=== PATIENT | male | born 1955 | race Caucasian/White ===

== ENCOUNTER 2019-05-08 12:48 | Observation (INO) | payer SELFPAY ==
[2019-05-08] MEDS ORDERED: MORPHINE 4 MG/ML SYR ONE (14:23)
[2019-05-08] MEDS ORDERED: NA CHLORIDE 0.9% 1,000 ML ONE (14:23)
[2019-05-08] MEDS ORDERED: ONDANSETRON 4 MG/2 ML VIAL ONE ×2 (14:23→17:46)
[2019-05-08] MEDS ORDERED: ASPIRIN EC 81 MG TAB PO ONE (14:24)
[2019-05-08 14:30] LABS: Absolute Lymphocytes (CBC) 1.1 K/uL (0.7-4.9); Basophils % 0.4 % (0-1.3); Hematocrit 44.3 % (39.6-49.0); RBC Red Blood Cell Count 5.07 M/uL (4.33-5.43)
[2019-05-08 14:34] LABS: Protime INR 1.62
--- NOTE | 2019-05-08 14:48 | RAD REPORT ---
EXAM DESCRIPTION: Yannick Single View05/08/2019 2:34 pm CLINICAL HISTORY: Chest pain COMPARISON: 2009 FINDINGS: The lungs appear clear of acute infiltrate. The heart is normal size IMPRESSION: No acute abnormalities displayed
[2019-05-08 14:52] LABS: ALT/SGPT 29 U/L (12-78); AST/SGOT 21 U/L (15-37); Albumin 3.3 g/dL (3.4-5.0); Alkaline Phosphatase 81 U/L (45-117); BUN Blood Urea Nitrogen 11 mg/dL (7-18); Bicarbonate 28 mmol/L (21-32); Bilirubin Direct 0.1 mg/dL (0-0.2); Bilirubin Total 0.4 mg/dL (0.2-1.0); Glucose Level 95 mg/dL (74-106); NT PRO-BNP 40 pg/mL (<125); Potassium 3.9 mmol/L (3.5-5.1); Protein, Total 6.6 g/dL (6.4-8.2); Sodium Level 140 mmol/L (136-145); Troponin (Emerg Dept Use Only) < 0.02 ng/mL (0.0-0.045)
--- NOTE | 2019-05-08 15:26 | EDPHYS ---
Physician Documentation [facility] Name: Jean Marie Xie Age: 63 yrs Sex: Male : 1955 Arrival Date: 05/08/2019 Time: 12:52 Bed 8 Private MD: KINGS Physician Qamar Hardin HPI: 05/08 14:15 This 63 yrs old Male presents to ER via Wheelchair with complaints of Blood bianka clot. 14:15 The patient presents with decreased range of motion, pain, swelling, tenderness. The bianka complaints affect the lateral aspect of right knee, lateral aspect of right calf, posterior aspect of right knee, right calf, right Achilles, medial aspect of right knee, medial aspect of right calf, right ankle, right knee, right morrison and anterior aspect of right ankle. Context: resulted from an unknown cause, the patient can partially bear weight, the patient is able to ambulate. Onset: The symptoms/episode began/occurred 4 day(s) ago. Modifying factors: The symptoms are alleviated by elevating leg, remaining still, the symptoms are aggravated by weight bearing, bending knee. Treatment prior to arrival includes: prescription medications, coumadin. The patient has not experienced similar symptoms in the past. Historical: - Allergies: 13:05 ACETAMINOPHEN; aj1 - Home Meds: 13:05 Warfarin Oral [Active]; Aspirin Oral [Active]; aj1 - PMHx: 13:05 DVT; aj1 - Immunization history:: Flu vaccine is not up to date. - Social history:: Smoking status: Patient/guardian denies using tobacco. - Ebola Screening: : Patient denies travel to an Ebola-affected area in the 21 days before illness onset. - Family history:: not pertinent. ROS: 14:15 Constitutional: Negative for fever, chills, and weight loss, Eyes: Negative for injury, bianka pain, redness, and discharge, ENT: Negative for injury, pain, and discharge, Neck: Negative for injury, pain, and swelling, Abdomen/GI: Negative for abdominal pain, nausea, vomiting, diarrhea, and constipation, Back: Negative for injury and pain, : Negative for injury, bleeding, discharge, and swelling, Skin: Negative for injury, rash, and discoloration, Neuro: Negative for headache, weakness, numbness, tingling, and seizure, Psych: Negative for depression, anxiety, suicide ideation, homicidal ideation, and hallucinations, Allergy/Immunology: Negative for hives, rash, and allergies, Endocrine: Negative for neck swelling, polydipsia, polyuria, polyphagia, and marked weight changes, Hematologic/Lymphatic: Negative for swollen nodes, abnormal bleeding, and unusual bruising. 14:15 Cardiovascular: Positive for chest pain, of the chest. 14:15 Respiratory: Positive for shortness of breath. 14:15 : 14:15 MS/extremity: Positive for decreased range of motion, pain, swelling, tenderness, of the right leg. Exam: 14:15 Constitutional: This is a well developed, well nourished patient who is awake, alert, bianka and in no acute distress. Head/Face: Normocephalic, atraumatic. Eyes: Pupils equal round and reactive to light, extra-ocular motions intact. Lids and lashes normal. Conjunctiva and sclera are non-icteric and not injected. Cornea within normal limits. Periorbital areas with no swelling, redness, or edema. ENT: Nares patent. No nasal discharge, no septal abnormalities noted. Tympanic membranes are normal and external auditory canals are clear. Oropharynx with no redness, swelling, or masses, exudates, or evidence of obstruction, uvula midline. Mucous membranes moist. Neck: Trachea midline, no thyromegaly or masses palpated, and no cervical lymphadenopathy. Supple, full range of motion without nuchal rigidity, or vertebral point tenderness. No Meningismus. Chest/axilla: Normal chest wall appearance and motion. Nontender with no deformity. No lesions are appreciated. Respiratory: Lungs have equal breath sounds bilaterally, clear to auscultation and percussion. No rales, rhonchi or wheezes noted. No increased work of breathing, no retractions or nasal flaring. Abdomen/GI: Soft, non-tender, with normal bowel sounds. No distension or tympany. No guarding or rebound. No evidence of tenderness throughout. Back: No spinal tenderness. No costovertebral tenderness. Full range of motion. Skin: Warm, dry with normal turgor. Normal color with no rashes, no lesions, and no evidence of cellulitis. Neuro: Awake and alert, GCS 15, oriented to person, place, time, and situation. Cranial nerves II-XII grossly intact. Motor strength 5/5 in all extremities. Sensory grossly intact. Cerebellar exam normal. Normal gait. Psych: Awake, alert, with orientation to person, place and time. Behavior, mood, and affect are within normal limits. 14:15 Cardiovascular: Rate: tachycardic, Rhythm: regular, Pulses: Pulses are 4+ in bilateral radial, brachial, femoral, popliteal, posterior tibial and and dorsalis pedis arteries.. Heart sounds: normal, normal S1and S2, no S3 or S4, no murmur, no rub, no gallop, Edema: is not appreciated, JVD: is not appreciated. Vital Signs: 13:05 BP 123 / 87; Pulse 103; Resp 18; Temp 98.9; Pulse Ox 98% on R/A; Weight 86.18 kg (R); aj1 Height 5 ft. 10 in. (177.80 cm) (R); Pain 8/10; 14:15 BP 145 / 94; Pulse 85; Resp 15 S; Pulse Ox 95% on R/A; jl7 16:39 BP 150 / 95; Pulse 90; Resp 17; Pulse Ox 97% on R/A; em 19:40 BP 125 / 83; Pulse 81; Resp 17 S; Pulse Ox 95% on R/A; jd3 13:05 Body Mass Index 27.26 (86.18 kg, 177.80 cm) aj1 MDM: 13:44 Patient medically screened. [facility] 14:18 Data reviewed: vital signs, nurses notes, lab test result(s), EKG, radiologic studies, [facility] CT scan, doppler, plain films. 05/08 13:49 Order name: Basic Metabolic Panel; Complete Time: 15:16 05/08 13:49 Order name: CBC with Diff; Complete Time: 15:16 05/08 13:49 Order name: LFT's; Complete Time: 15:16 05/08 13:49 Order name: Magnesium; Complete Time: 15:16 05/08 13:49 Order name: NT PRO-BNP; Complete Time: 15:16 05/08 13:49 Order name: PT-INR; Complete Time: 15:16 05/08 13:49 Order name: Troponin (emerg Dept Use Only); Complete Time: 15:16 05/08 13:49 Order name: XRAY Chest (1 view); Complete Time: 15:16 05/08 14:15 Order name: US Extremity Venous W Compression Mahamed; Complete Time: 16:27 [facility] 05/08 14:15 Order name: CT Chest For PE Angio [facility] 05/08 16:07 Order name: CT; Complete Time: 16:27 EDIN 05/08 17:15 Order name: Knee Right Wo Cont EDIN 05/08 17:17 Order name: Knee Right 3 View XRAY [facility] 05/08 13:49 Order name: EKG; Complete Time: 13:50 hb 05/08 13:49 Order name: Cardiac monitoring; Complete Time: 14:28 hb 05/08 13:49 Order name: EKG - Nurse/Tech; Complete Time: 14:28 hb 05/08 13:49 Order name: IV Saline Lock; Complete Time: 14:28 hb 05/08 13:49 Order name: Labs collected and sent; Complete Time: 14:28 hb 05/08 15:31 Order name: CONS Pharmacy Consult [facility] 05/08 13:49 Order name: O2 Per Protocol; Complete Time: 14:28 hb 05/08 13:49 Order name: O2 Sat Monitoring; Complete Time: 14:28 hb Administered Medications: 14:20 Drug: NS 0.9% 1000 ml Route: IV; Rate: 1 bolus; Site: left wrist; jl7 15:30 Follow up: IV Status: Completed infusion; IV Intake: 1000ml jl7 14:22 Drug: Zofran 4 mg Route: IVP; Site: left wrist; jl7 16:35 Follow up: Response: No adverse reaction jl7 14:25 Drug: morphine 4 mg Route: IVP; Site: left wrist; jl7 16:35 Follow up: Response: No adverse reaction; Pain is decreased jl7 14:27 Drug: Aspirin 162 mg Route: PO; jl7 16:34 Follow up: Response: No adverse reaction jl7 16:29 Not Given (Duplicate Order): Heparin (DVT/PE- Bolus per protocol) - HEParin 80 units/kg bianka IVP once; Max 8,000 units 16:29 Not Given (Duplicate Order): Heparin (DVT/PE Drip) 18 units/kg/hr - (HEParin 22440 bianka units, D5W 500 ml) IV at per protocol Per protocol; Max initial rate 1800 units/hr 18:00 Drug: Zofran 4 mg Route: IVP; Site: left wrist; jl7 19:07 Follow up: Response: No adverse reaction jl7 18:07 Not Given (Duplicate Order): Dilaudid 1 mg IVP once; RASS on ADMIN: Combtv4, Very bianka Agttd3, Agttd2, Rstlss1, AlertClm0, Drwsy-1, Lt Sdtn-2, Mod Sdtn-3, Dp Sdtn-4, UnArsble-5 18:15 Drug: Dilaudid 0.5 mg Route: IVP; Site: left wrist; jl7 18:30 Follow up: Response: No adverse reaction; Pain is decreased jl7 18:20 Drug: Dilaudid 0.5 mg Route: IVP; Site: left wrist; jl7 18:30 Follow up: Response: No adverse reaction; Pain is decreased jl7 19:06 Drug: Pepcid 20 mg Route: IVP; Site: left wrist; jl7 19:07 Follow up: Response: No adverse reaction jl7 Disposition: 05/08/19 17:19 Hospitalization ordered by Harmony Lomeli for Inpatient Admission. Preliminary diagnosis are Edema, unspecified, Effusion, right knee, Synovial cyst of popliteal space [Ervin], right knee, Coagulation defect, unspecified - on coumadin. - Bed requested for Telemetry/MedSurg (Inpatient). - Status is Inpatient Admission. jd3 - Condition is Fair. - Problem is new. - Symptoms have improved. UTI on Admission? No Signatures: Dispatcher [employer] EDAlina Tate RN RN aj1 Janette Levi RN Qamar Will MD MD cha Baxter, Heather, RN RN hb Leal, Jahala, RN RN jl7 Flako Jiménez RN RN jd3 Corrections: (The following items were deleted from the chart) 16:05 15:25 Hospitalization Ordered by Harmony Lomeli MD for Inpatient Admission. Preliminary gilberto diagnosis is Acute embolism and thrombosis of unspecified deep veins of right distal lower extremity; Chest pain, unspecified; Dyspnea. Bed requested for Telemetry/MedSurg (Inpatient). Status is Inpatient Admission. Condition is Fair. Problem is new. Symptoms have improved. UTI on Admission? No. bianka 16:29 16:05 05/08/2019 15:25 Hospitalization Ordered by Harmony Lomeli MD for Inpatient bianka Admission. Preliminary diagnosis is Acute embolism and thrombosis of unspecified deep veins of right distal lower extremity; Chest pain, unspecified; Dyspnea. Bed requested for Telemetry/MedSurg (Inpatient). Status is Inpatient Admission. Condition is Fair. Problem is new. Symptoms have improved. UTI on Admission? No. dw 17:07 16:33 05/08/2019 16:[address] [facility]. Diagnosis is bianka Edema, unspecified; Pain in right lower leg - 3.3 cm popliteal fossa. Reason for transfer: Higher level of care. Accepting physician is to [facility], vascular surgeon. Condition is Fair. Problem is new. Symptoms have improved. bianka 17:19 17:19 Hospitalization Ordered by Harmony Lomeli MD for Inpatient Admission. Preliminary dw diagnosis is Edema, unspecified; Effusion, right knee; Synovial cyst of popliteal space [Ervin], right knee; Coagulation defect, unspecified - on coumadin. Bed requested for Telemetry/MedSurg (Inpatient). Status is Inpatient Admission. Condition is Fair. Problem is new. Symptoms have improved. UTI on Admission? No. bianka 20:49 17:19 05/08/2019 17:19 Hospitalization Ordered by Harmony Lomeli MD for Inpatient jd3 Admission. Preliminary diagnosis is Edema, unspecified; Effusion, right knee; Synovial cyst of popliteal space [Ervin], right knee; Coagulation defect, unspecified - on coumadin. Bed requested for Telemetry/MedSurg (Inpatient). Status is Inpatient Admission. Condition is Fair. Problem is new. Symptoms have improved. UTI on Admission? No. dw
--- NOTE | 2019-05-08 15:26 | ER ---
Nurse's Notes [facility] Name: Jean Marie Xie Age: 63 yrs Sex: Male : 1955 Arrival Date: 05/08/2019 Time: 12:52 Bed 8 Private MD: Diagnosis: Edema, unspecified;Effusion, right knee;Synovial cyst of popliteal space [Ervin], right knee;Coagulation defect, unspecified-on coumadin Presentation: 05/08 13:02 Presenting complaint: Patient states: He had an ultrasound done last Saturday and they aj1 diagnosed him with a blood clot, his doctor started him on warfarin but said that if it was getting worse to come to the emergency room. States that he went back to work today and while he was working the pain got much worse and his swelling got worse. Transition of care: patient was not received from another setting of care. Onset of symptoms was 2019. Risk Assessment: Do you want to hurt yourself or someone else? Patient reports no desire to harm self or others. Initial Sepsis Screen: Does the patient meet any 2 criteria? HR > 90 bpm. No. Patient's initial sepsis screen is negative. Does the patient have a suspected source of infection? No. Patient's initial sepsis screen is negative. Care prior to arrival: None. 13:02 Method Of Arrival: Wheelchair aj1 13:02 Acuity: YULISSA 3 aj1 Triage Assessment: 13:05 General: Appears in no apparent distress. uncomfortable, Behavior is calm, cooperative, aj1 appropriate for age. Pain: Complains of pain in right leg Pain currently is 8 out of 10 on a pain scale. Neuro: Level of Consciousness is awake, alert, obeys commands. Cardiovascular: Patient's skin is warm and dry. Respiratory: Airway is patent Respiratory effort is even, unlabored, Respiratory pattern is regular, symmetrical. Historical: - Allergies: 13:05 ACETAMINOPHEN; aj1 - Home Meds: 13:05 Warfarin Oral [Active]; Aspirin Oral [Active]; aj1 - PMHx: 13:05 DVT; aj1 - Immunization history:: Flu vaccine is not up to date. - Social history:: Smoking status: Patient/guardian denies using tobacco. - Ebola Screening: : Patient denies travel to an Ebola-affected area in the 21 days before illness onset. - Family history:: not pertinent. Screenin:15 Abuse screen: Denies threats or abuse. Denies injuries from another. Nutritional jl7 screening: No deficits noted. Tuberculosis screening: No symptoms or risk factors identified. Fall Risk IV access (20 points). Assessment: 13:45 General: Appears in no apparent distress. uncomfortable, Behavior is calm, cooperative, jl7 appropriate for age. Pain: Complains of pain in right ankle, posterior aspect of right knee and right calf Pain currently is 6 out of 10 on a pain scale. at worst was 8 out of 10 on a pain scale. Quality of pain is described as aching, Pain began 5 days ago Is continuous. Neuro: Level of Consciousness is awake, alert, obeys commands, Oriented to person, place, time, situation. Cardiovascular: Patient's skin is warm and dry. Pulses are palpable in right dorsalis pedis artery and left dorsalis pedis artery are 1+ in right dorsalis pedis artery are 3+ in left dorsalis pedis artery. Respiratory: Reports "I got short of breath earlier but I'm not right now." Airway is patent Respiratory effort is even, unlabored, Respiratory pattern is regular, symmetrical. Derm: Skin is pink, warm \\T\\ dry. Musculoskeletal: Swelling present in right lower extrmitiy. 17:50 Reassessment: was in MRI requesting pain medication for the procedure, provider em notified, given verbal orders for 1 mg Dilaudid x 1 IVP and 4 mg Zofran x 1 IVP, pt stated, "I feel like my blood pressure is low" became diaphoretic and clammy, primary nurse and provider notified, pt assisted back into MRI bed, Dr. Hardin at bedside, will hold medication until procedure is complete. 19:53 General: Appears in no apparent distress. comfortable, Behavior is calm, cooperative, jd3 appropriate for age. Pain: Complains of pain in right leg Quality of pain is described as aching. Neuro: Level of Consciousness is awake, alert, obeys commands, Oriented to person, place, time, situation. Cardiovascular: Denies chest pain, Capillary refill < 3 seconds Patient's skin is warm and dry. Respiratory: Airway is patent Respiratory effort is even, unlabored, Respiratory pattern is regular, symmetrical, Denies cough, shortness of breath. GI: No signs and/or symptoms were reported involving the gastrointestinal system. : No signs and/or symptoms were reported regarding the genitourinary system. EENT: No signs and/or symptoms were reported regarding the EENT system. Derm: Skin is intact, Skin is dry, Skin is normal, Skin temperature is warm. Musculoskeletal: Circulation, motion, and sensation intact. Swelling present in right lower extremity. 20:01 Reassessment: Patient appears in no apparent distress at this time. Patient and/or jd3 family updated on plan of care and expected duration. Pain level reassessed. Patient is alert, oriented x 3, equal unlabored respirations, skin warm/dry/pink. report given to Kaykay PORRAS. 20:48 Reassessment: Patient appears in no apparent distress at this time. Patient and/or jd3 family updated on plan of care and expected duration. Pain level reassessed. Patient is alert, oriented x 3, equal unlabored respirations, skin warm/dry/pink. Vital Signs: 13:05 BP 123 / 87; Pulse 103; Resp 18; Temp 98.9; Pulse Ox 98% on R/A; Weight 86.18 kg (R); aj1 Height 5 ft. 10 in. (177.80 cm) (R); Pain 8/10; 14:15 BP 145 / 94; Pulse 85; Resp 15 S; Pulse Ox 95% on R/A; jl7 16:39 BP 150 / 95; Pulse 90; Resp 17; Pulse Ox 97% on R/A; em 19:40 BP 125 / 83; Pulse 81; Resp 17 S; Pulse Ox 95% on R/A; jd3 13:05 Body Mass Index 27.26 (86.18 kg, 177.80 cm) aj1 ED Course: 12:52 Patient arrived in ED. mr 13:04 Triage completed. aj1 13:05 Arm band placed on Patient placed in waiting room, Patient notified of wait time. aj1 13:36 Lalita Kwong RN is Primary Nurse. jl7 13:44 Qamar Hardin MD is Attending Physician. bianka 14:00 Initial lab(s) drawn, by me, sent to lab. Inserted saline lock: 20 gauge in left wrist, jl7 using aseptic technique. Blood collected. 14:15 Patient has correct armband on for positive identification. Placed in gown. Bed in low jl7 position. Call light in reach. Side rails up X2. quality assurance monitor body on. Pulse ox on. NIBP on. Warm blanket given. 14:34 EKG done, by waste minimization technician. reviewed by Qamar Hardin MD. at1 14:38 XRAY Chest (1 view) In Process Unspecified. EDMS 15:01 US Extremity Venous W Compression Mahamed In Process Unspecified. EDMS 15:24 Harmony Lomeli MD is Hospitalizing Provider. bianka 16:15 Admitting physician to see patient. jl7 17:18 Harmony Lomeli MD is Hospitalizing Provider. bianka 19:41 No provider procedures requiring assistance completed. Patient admitted, IV remains in jd3 place. Administered Medications: 14:20 Drug: NS 0.9% 1000 ml Route: IV; Rate: 1 bolus; Site: left wrist; jl7 15:30 Follow up: IV Status: Completed infusion; IV Intake: 1000ml jl7 14:22 Drug: Zofran 4 mg Route: IVP; Site: left wrist; jl7 16:35 Follow up: Response: No adverse reaction jl7 14:25 Drug: morphine 4 mg Route: IVP; Site: left wrist; jl7 16:35 Follow up: Response: No adverse reaction; Pain is decreased jl7 14:27 Drug: Aspirin 162 mg Route: PO; jl7 16:34 Follow up: Response: No adverse reaction jl7 16:29 Not Given (Duplicate Order): Heparin (DVT/PE- Bolus per protocol) - HEParin 80 units/kg bianka IVP once; Max 8,000 units 16:29 Not Given (Duplicate Order): Heparin (DVT/PE Drip) 18 units/kg/hr - (HEParin 04949 bianka units, D5W 500 ml) IV at per protocol Per protocol; Max initial rate 1800 units/hr 18:00 Drug: Zofran 4 mg Route: IVP; Site: left wrist; jl7 19:07 Follow up: Response: No adverse reaction jl7 18:07 Not Given (Duplicate Order): Dilaudid 1 mg IVP once; RASS on ADMIN: Combtv4, Very bianka Agttd3, Agttd2, Rstlss1, AlertClm0, Drwsy-1, Lt Sdtn-2, Mod Sdtn-3, Dp Sdtn-4, UnArsble-5 18:15 Drug: Dilaudid 0.5 mg Route: IVP; Site: left wrist; jl7 18:30 Follow up: Response: No adverse reaction; Pain is decreased jl7 18:20 Drug: Dilaudid 0.5 mg Route: IVP; Site: left wrist; jl7 18:30 Follow up: Response: No adverse reaction; Pain is decreased jl7 19:06 Drug: Pepcid 20 mg Route: IVP; Site: left wrist; jl7 19:07 Follow up: Response: No adverse reaction jl7 Intake: 15:30 IV: 1000ml; Total: 1000ml. jl7 Outcome: 15:25 Decision to Hospitalize by Provider. bianka 16:33 ER care complete, transfer ordered by . bianka 17:19 Decision to Hospitalize by Provider. bianka 20:48 Admitted to Med/surg accompanied by tech, via wheelchair, room 405, with chart, Report sendy called to Kaykay PORRAS 20:48 Condition: stable 20:48 Instructed on the need for admit, Demonstrated understanding of instructions. 20:49 Patient left the ED. sendy Signatures: Dispatcher [employer] Alina Dumont, RN RN aj1 Qamar Hardin MD MD cha Rivera, Damian Zarco, RN Erika Frances, integrity engineer EKG Tat1 Lalita Kwong RN RN Flako Vo RN RN sendy Corrections: (The following items were deleted from the chart) 20:01 19:53 Reassessment: attempted to call report for pt admission. nurse busy, will call sendy back sendy
[2019-05-08] MEDS ORDERED: MORPHINE 2 MG/ML SYR IV PRN (15:29)
--- NOTE | 2019-05-08 15:45 | RAD REPORT ---
EXAM DESCRIPTION: US - Extrem Venous W Compress Mahamed - 05/08/2019 3:09 pm CLINICAL HISTORY: Leg pain and swelling, primarily right leg, history of a DVT diagnosis at an outsi de facility COMPARISON: None. TECHNIQUE: Real-time sonographic evaluation of the bilateral lower extremity common femoral, superfi cial femoral, popliteal and posterior tibial veins was performed. FINDINGS: Normal compressibility, flow augmentation, phasic flow and spontaneous flow are identified in the left and right lower extremity common femoral, superficial femoral, popliteal and posterior t ibial veins. No intraluminal filling defects seen. No sonographic correlate for the possible DVT on outside study. In the right popliteal fossa there is a 3.3 centimeter oval heterogeneous hypoechoic mass. This is mo st typically a hemorrhagic or complex popliteal fossa cyst. Soft tissue hematoma from trauma would be possible as well. IMPRESSION: No DVT in either lower extremity. Right popliteal fossa 3.3 centimeter masses most likely hemorrhagic or complex popliteal fossa cyst.
[2019-05-08] MEDS ORDERED: HEPARIN/D5W 0 UNIT/0 ML BAG IV ONE (16:01)
[2019-05-08] MEDS ORDERED: HEPARIN 5000 UNIT/ML 1 ML VIAL ONE (16:01)
[2019-05-08] MEDS ORDERED: FAMOTIDINE 20 MG/2 ML VIAL IV ONE (16:02)
--- NOTE | 2019-05-08 16:05 | RAD REPORT ---
EXAM DESCRIPTION: CT - Chest For Pe Angio - 05/08/2019 3:50 pm CLINICAL HISTORY: Chest pain;Dyspnea leg DVT on outside study COMPARISON: Chest Single View dated 05/08/2019 TECHNIQUE: Dynamically enhanced 3 mm thick images of the chest were obtained during administration o f approximately 150mL Isovue 370 IV contrast. Coronal and oblique MIP reconstruction images were gene rated and reviewed. Exam utilizes a protocol to evaluate the pulmonary arterial tree. All CT scans are performed using dose optimization technique as appropriate and may include automated exposure control or mA/KV adjustment according to patient size. FINDINGS: No pulmonary emboli are identified. The aorta as imaged shows no acute or suspicious finding. No pericardial thickening or effusion. Atelectasis changes are present with no mass or infiltrate. Calcified granuloma seen posterior gutter on the right. No pleural effusion or pleural thickening. No mediastinal or hilar suspicious masses. No chest wall masses or abnormal axillary lymphadenopathy. No acute bone findings seen. Old left clavicle fracture is seen. IMPRESSION: No pulmonary emboli identified. No other significant or suspicious findings.
--- NOTE | 2019-05-08 17:29 | P.HP ---
Certification for Inpatient Patient admitted to: Observation Practitioner: I am a practitioner with admitting privileges, knowledge of patient current condition, hospital course, and medical plan of care. Services: Services provided to patient in accordance with Admission requirements found in Title 42 Section 412.3 of the Code of Federal Regulations Patient History Date of Service: 05/08/19 Reason for admission: RLE pain and swelling History of Present Illness: Mr. Xie is 63 y/o male with no significant medical history who presented to the ER with c/o RLE swelling and pain. His story started 2 months ago with R knee pain with associated dislocation of joint spontaneously which patient self reduces. 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 He noticed that his RLE pain continued to worsen and swelling increased. Pain was 10/10 sometime, preventing from WB and ambulating. Patient was seen at a clinic in [place] 5 days ago, RLE Venous doppler was read at acute DVT. He was initiated on coumadin and asked to follow up for INR monitoring. He recalls episodes of SOB, usually associated with increased pain intensity. Patient denies any family history of blood clots. Allergies acetaminophen Allergy (Verified 01/09/12 15:16) Anaphylaxis ibuprofen [From DayQuil Sinus Pressure/Pain] Allergy (Verified 01/09/12 15:16) Anaphylaxis pseudoephedrine HCl [From DayQuil Sinus Pressure/Pain] Allergy (Verified 15:16) Anaphylaxis Home medications list reviewed: Yes - Past Medical/Surgical History -: Denies -: Appendectomy -: R arm surgery 2/2 trauma - Social History Smoking Status: Former smoker Alcohol use: Yes CD- Drugs: No Place of Residence: Home Review of Systems 10-point ROS is otherwise unremarkable Musculoskeletal: Leg Pain, Pedal edema Physical Examination - Physical Exam General: Alert, In no apparent distress HEENT: Atraumatic, PERRLA, Mucous membr. moist/pink, Other ([place]), EOMI, Sclerae nonicteric Neck: Supple, 2+ carotid pulse no bruit, No LAD, Without JVD or thyroid abnormality Respiratory: Clear to auscultation bilaterally, Normal air movement Cardiovascular: Regular rate/rhythm, Normal S1 S2 Capillary refill: <2 Seconds Gastrointestinal: Normal bowel sounds, No tenderness Musculoskeletal: Swelling, Tenderness, Warmth Integumentary: No rashes, Erythema Neurological: Normal gait, Normal speech, Normal strength at 5/5 x4 extr, Normal tone, Normal affect Lymphatics: No axilla or inguinal lymphadenopathy - Studies Laboratory Data (last 24 hrs) 05/08/19 14:05: PT 18.8 H, INR 1.62 05/08/19 14:05: WBC 9.7, Hgb 15.1, Hct 44.3, Plt Count 246 05/08/19 14:05: Sodium 140, Potassium 3.9, BUN 11, Creatinine 0.88, Glucose 95, Magnesium 2.0, Total Bilirubin 0.4, AST 21, ALT 29, Alkaline Phosphatase 81 Imagings Data: IMPRESSION: No pulmonary emboli identified. No other significant or suspicious findings. IMPRESSION: No DVT in either lower extremity. Right popliteal fossa 3.3 centimeter masses most likely hemorrhagic or complex popliteal fossa cyst. Assessment and Plan - Plan Mr. Xie is 63 y/o male pw RLE swelling and pain. #RLE swelling and pain- Diagnosed with Acute DVT on 5 days. Patient with notable risk factors including travel and possible trauma. -Repeat venous doppler is neg for acute DVT; however showed popliteal fossa mass. unclear what this structure is -Per ER physician, this was discussed with ortho, advised for further imaging with MRI. -consult ortho electronic field service engineer -pain control. Hold AC pending work up -CTA Chest ruled out PE -R knee Xray DVT ppx- SCD on LLE. Hold lovenox and SCD on RLE. Patient is full code. His cousin at bedside is MPOA - Advance Directives Does patient have a Living Will: No Does patient have a Durable POA for Healthcare: No - Code Status/Comfort Care Code Status Assessed: Yes Code Status: Full Code
[2019-05-08] MEDS ORDERED: HYDROMORPHONE HCL 1 MG/ML INJ ONE ×2 (17:46→18:11)
[2019-05-08] MEDS ORDERED: MORPHINE 4 MG/ML SYR IV PRN (17:47)
[2019-05-08] MEDS ORDERED: FENTANYL CITR 100 MCG/2 ML ONE (17:57)
--- NOTE | 2019-05-08 19:03 | RAD REPORT ---
EXAM DESCRIPTION: MRI - Knee Right Wo Cont - 05/08/2019 6:41 pm CLINICAL HISTORY: Right knee pain and swelling COMPARISON: None. TECHNIQUE: Sagittal and axial PD and T2 fat sat sequences obtained. Coronal T2 fat sat and T1 sequen may also obtained. FINDINGS: No occult fracture or bone bruise of the distal femur. Small subcortical degenerative cyst ic changes are present medially. Femoral chondromalacia changes are present. A full-thickness osteoch ondral defect is not identified. Chondromalacia is significant. Patella chondromalacia changes are al so present. No full thickness osteochondral defects of the femur or patella. A 10 mm subcortical dege nerative cyst is present along the posterior tibial spine near the PCL insertion. Trabecular edema se en surrounding this subcortical degenerative cyst. A fracture is not identified. There degenerative c ystic changes seen in the anterior aspect of the medial tibial plateau. No full thickness osteochondr al fragment seen. No proximal fibula abnormality. The anterior cruciate, posterior cruciate, medial collateral and lateral collateral ligaments are int act. Lateral meniscus degenerative signal is present without tear. There is degenerative signal in the pos terior horn of the medial meniscus. Meniscal tear is suspected but not confirmed. Large joint effusion is present. There is a 6 x 6 x 3 centimeter fluid collection between the proximal tibia and the gastrocnemius mus culature. This is believed to be a Ervin cyst that has been extended or directed inferiorly. Small am ount of edema surrounds this cyst. There may be some leakage from the cyst. Additionally, there is a 3.5 centimeter heterogeneous mixed signal intensity mass along the superficial margin of the medial h ead gastrocnemius muscle. This is the finding seen on sonography. In this location this is most likel y a hematoma. The medial head tendon origins show slight thickening and signal increase relative to t he lateral tendon origin. IMPRESSION: Approximately 3 centimeter heterogeneous mass superficial to the left gastrocs anemia he was tendon and muscle fibers. This is believed to be a hematoma. There is a small amount of fluid or edema in the surrounding fatty tissues. There is minimal tendinitis or degenerative signal within th e medial head gastrocnemius tendon origin. Patient has a 6 centimeter sized popliteal fossa cyst extending inferiorly along the posterior margin of the tibia. Surrounding fluid may indicate some leakage from the cyst. Patient has moderately prominent degenerative changes as detailed. An acute bone process is not suspe cted. No full thickness osteochondral defect. Large joint effusion. Abnormal signal in the posterior horn medial meniscus without definitive meniscal tear. Exam has limitation due to motion.
--- NOTE | 2019-05-08 20:52 | RAD REPORT ---
EXAM DESCRIPTION: RAD - Knee Right 3 View - 05/08/2019 6:53 pm CLINICAL HISTORY: Knee pain, history of DVT study at outside facility COMPARISON: None. FINDINGS: No fracture, dislocation or periosteal reaction.Moderately large joint effusion is present . Medial and lateral compartment marginal spurring present. No joint space narrowing. Popliteal fossa soft tissue fullness present. No suspicious calcifications. IMPRESSION: Degenerative change in joint effusion with no acute bone finding.
[2019-05-08] MEDS: HYDROMORPHONE HCL 1 MG/ML INJ IV PRN (23:52)
[2019-05-09 02:10] VITALS: BMI 27.2
[2019-05-09] MEDS: HYDROMORPHONE HCL 1 MG/ML INJ IV PRN ×3 (05:38→18:02)
--- NOTE | 2019-05-09 06:36 | EKG ---
Test Date: 2019-05-08 Test Time: 14:25:00 Tafe Teacher: AZUL MEASUREMENT RESULTS: Intervals: Rate: 84 AR: 152 QRSD: 84 QT: 360 QTc: 425 [place]: P: 53 AR: 152 QRS: 27 T: 38 INTERPRETIVE STATEMENTS: Normal sinus rhythm Normal ECG Compared to ECG 01/09/2012 15:09:20 Sinus bradycardia no longer present Electronically Signed On 05-09-19 06:35:44 COVER MAKING MACHINE OPERATOR by Adolfo Pérez
--- NOTE | 2019-05-09 10:33 | CON ---
Date of Consultation: 05/09/2019 Reason For Consultation: Right leg pain and swelling. History Of Present Illness: Jean Marie is a 63-year-old male who presented to the ER yesterday for a week -long history of right lower extremity pain and swelling. The patient states that he had significant pain and swelling of his right leg and had ultrasound study done, which demonstrated a clot in his r ight lower extremity. He was started on Coumadin and was instructed to keep it elevated and rested. Patient reports increased activity level yesterday with increased pain to his right lower extremity and pain with weight bearing. He came into the ER secondary to his continued pain. Repeat ultrasoun d of the right lower extremity was negative for any clots, but did demonstrate a Ervin cyst and possi ble mass. MRI was done in the ER, which demonstrated a possible hematoma in his right popliteal roque a as well as a Ervin cyst. He was admitted to the floor for pain control, elevation, further evaluat ion. He states that he is very busy with his work and it is difficult to take time off. Review of Systems: As above, otherwise negative. Past Medical History: None. Past Surgical History: Appendectomy, right arm surgery. Social History: Denies tobacco use. Reports occasional alcohol use. Denies drug use. Lives at [facility]. Physical Examination: General: No apparent distress. HEENT: Normocephalic, atraumatic. Neck: Supple. Cardiovascular: Brisk cap refill to all digits. Chest: Nonlabored breathing. Abdomen: Nondistended. Psychiatric: Responsive to exam. Musculoskeletal: Bilateral upper extremities functional range of motion without pain. No gross defo rmities. No obvious dislocations. Left lower extremity functional range of motion without pain. No gross deformities. No obvious dislocations. Right lower extremity, no pain with range of motion of the hip. Some pain with range of motion of the knee. No erythema or signs of infection. He does h ave swelling of the right calf with some early ecchymosis noted. Some ecchymosis also coming into th e foot and ankle. He is able to plantar flex and dorsiflex his ankle without pain. His compartments are swollen, but soft. Neurovascularly intact distally. X-rays: X-rays of the right knee are negative for any fracture or dislocation. MRI of the right kne e demonstrates a likely hematoma 3 cm, just superficial to the left gastroc, as well as a 6 cm size c yst with some surrounding fluid with likely leakage of the cyst. The patient also noted to have a vicky int effusion. Assessment And Plan: Jean Marie is a 63-year-old male with right knee osteoarthritis as well as right low er extremity, likely secondary to hematoma and a ruptured Ervin cyst. I discussed with the patient t hat this is his diagnosis. We will proceed with nonsurgical treatment. He will keep his right lower extremity elevated to aid with minimizing swelling as well as icing the right lower extremity. He i s instructed to stay off his feet for at least 2 weeks to aid with resolution of the hematoma as well as the swelling. He may follow up in my clinic in 1-2 weeks for re-evaluation. NUBIA/DELVIN Voice ID: [id number] Report ID: [id number]
[2019-05-09 11:25] LABS: Absolute Lymphocytes (CBC) 0.9 K/uL (0.7-4.9); Basophils % 0.4 % (0-1.3); Hematocrit 43.6 % (39.6-49.0); Lymphocytes % 14.1 % (15.3-44.8); MPV 7.7 fL (7.6-11.3)
[2019-05-09 11:35] LABS: Protime INR 1.84
[2019-05-09 11:39] LABS: Bilirubin Total 0.6 mg/dL (0.2-1.0); Protein, Total 6.3 g/dL (6.4-8.2)
[2019-05-09 11:48] LABS: Blood Morphology Comment NOT SEEN (NOT SEEN); Platelet Estimate ADEQ
[2019-05-09] MEDS ORDERED: INFLUENZA VACCINE (for 3y+) 0.5 ML DOSE IMVAC ONE (12:00)
--- NOTE | 2019-05-09 13:19 | P.PN ---
Subjective Date of Service: 05/09/19 Chief Complaint: RLE pain and swelling Subjective: No new changes Still in a lot pain. NWB on RLE Physical Examination - Vital Signs Temperature: 97.6 F Blood Pressure: 159/98 Pulse: 84 Respirations: 18 Pulse Ox (%): 94 - Physical Exam General: Alert, In no apparent distress HEENT: Atraumatic, PERRLA, EOMI Neck: Supple, JVD not distended Respiratory: Clear to auscultation bilaterally, Normal air movement Cardiovascular: Regular rate/rhythm, Normal S1 S2, Edema Gastrointestinal: Normal bowel sounds, No tenderness Musculoskeletal: Swelling, Erythema, Tenderness, Warmth Integumentary: No rashes Neurological: Normal speech, Normal tone, Normal affect Lymphatics: No axilla or inguinal lymphadenopathy - Studies Laboratory Data (last 24 hrs) 05/08/19 14:05: PT 18.8 H, INR 1.62 05/08/19 14:05: WBC 9.7, Hgb 15.1, Hct 44.3, Plt Count 246 05/08/19 14:05: Sodium 140, Potassium 3.9, BUN 11, Creatinine 0.88, Glucose 95, Magnesium 2.0, Total Bilirubin 0.4, AST 21, ALT 29, Alkaline Phosphatase 81 Imagings Data: IMPRESSION: Approximately 3 centimeter heterogeneous mass superficial to the left gastrocs anemia he was tendon and muscle fibers. This is believed to be a hematoma. There is a small amount of fluid or edema in the surrounding fatty tissues. There is minimal tendinitis or degenerative signal within the medial head gastrocnemius tendon origin. Patient has a 6 centimeter sized popliteal fossa cyst extending inferiorly along the posterior margin of the tibia. Surrounding fluid may indicate some leakage from the cyst. Patient has moderately prominent degenerative changes as detailed. An acute bone process is not suspected. No full thickness osteochondral defect. Large joint effusion. Abnormal signal in the posterior horn medial meniscus without definitive meniscal tear. Exam has limitation due to motion. Medications List Reviewed: Yes Assessment And Plan - Plan Mr. Xie is 63 y/o male pw RLE swelling and pain. #RLE swelling and pain- due to ruptured lawton's cyst and hematoma. Diagnosed with Acute DVT on saturday05/04/19, initiated on coumadin. Likely contributed to the hematoma. -Repeat venous doppler is neg for acute DVT; however showed popliteal fossa mass. -Evaluated by ortho, appreciate recommendation. -Pain, NWB on RLE -Consult PT for crutches training. -CTA Chest ruled out PE -monitor for compartment syndrome. currently soft to touch. #Coagulopathy- due to coumadin use. -INR is trending up. will reverse due to hematoma -vitamin K. #Elevated BP- denies any prior h/o hypertension. related to pain? -IV hydralazine PRN -evaluate need for oral antihypertensive upon discharge. DVT ppx- SCD on LLE. Hold lovenox and SCD on RLE. Patient is full code. His cousin at bedside is KRYSTYNA Dispo- dc in a.m Discharge Plan: Home
[2019-05-09] MEDS ORDERED: PHYTONADIONE 1 MG/0.5 ML SYR IM ONE (13:20)
[2019-05-09] MEDS ORDERED: HYDRALAZINE HCL 20 MG/ML VIAL IV PRN (13:24)
[2019-05-09] MEDS ORDERED: VITAMIN K (ADULT) 10 MG/ML SQ SCH (14:00)
[2019-05-09 15:13] LABS: Urine Appearance CLOUDY; Urine Bilirubin NEGATIVE (NEG); Urine Blood NEGATIVE (NEG); Urine Color YELLOW; Urine Glucose NEGATIVE (NEG); Urine Protein NEGATIVE (NEG)
[2019-05-09 15:30] LABS: Urine Amorphous Sediment 2+ /HPF (NONE SEEN); Urine Bacteria 20-50 /HPF (NONE SEEN); Urine Culture Reflex Order REFLEXED; Urine Microscopic Reflex ORDER UMIC; Urine Mucus 1+ /HPF (NONE SEEN); Urine RBC NONE SEEN /HPF (NONE SEEN)
[2019-05-10] MEDS: HYDROMORPHONE HCL 1 MG/ML INJ IV PRN ×3 (00:03→12:01)
[2019-05-10 06:36] LABS: Protime INR 1.37
[2019-05-10 06:37] LABS: Absolute Lymphocytes (CBC) 0.8 K/uL (0.7-4.9); Basophils % 0.2 % (0-1.3); Hematocrit 41.9 % (39.6-49.0); Lymphocytes % 11.4 % (15.3-44.8); MPV 7.8 fL (7.6-11.3); RBC Red Blood Cell Count 4.75 M/uL (4.33-5.43)
[2019-05-10] MEDS ORDERED: TRAMADOL HCL 50 MG TAB PO PRN (08:02)
[2019-05-10] MEDS ORDERED: GABAPENTIN 100 MG CAP PO PRN (08:03)
[2019-05-10 08:05] VITALS: O2SAT 93
--- NOTE | 2019-05-10 10:55 | P.PN ---
Subjective Date of Service: 05/10/19 Primary Care Provider: Dr. Reid([place]) Chief Complaint: RLE pain and swelling Subjective: Improving, Other (Still with swelling to the right lower extremity below the knee) Physical Examination - Vital Signs Temperature: 97.4 F Blood Pressure: 128/78 Pulse: 74 Respirations: 16 Pulse Ox (%): 93 - Physical Exam General: Alert, In no apparent distress, Oriented x3, Cooperative HEENT: Atraumatic Neck: Supple Respiratory: Clear to auscultation bilaterally Cardiovascular: Normal pulses, Regular rate/rhythm Gastrointestinal: Normal bowel sounds, Soft and benign, Non-distended Integumentary: Other (Swelling to the right lower extremity primarily in the calf region. Pain improved) Neurological: Normal speech, Normal strength at 5/5 x4 extr, Normal tone, Normal affect - Studies Medications List Reviewed: Yes Assessment & Plan Discharge Plan: Home Plan to discharge in: 24 Hours Physician Review Additional Text: Impression: Right lower extremity swelling below the knee likely related to ruptured Ervin' s cyst now with hematoma and joint effusion without DVT Plan: Right lower extremity swelling below the knee likely related to ruptured Ervin' s cyst now with hematoma and joint effusion without DVT: So for x-rays negative for fracture. MRI shows likely 3 cm hematoma just superior to the left gastric as well as 6 cm size cyst with some surrounding fluid likely leaking from Ervin cyst. Joint effusion noted. No evidence of DVT per venous Doppler. CT chest unremarkable for pulmonary embolism. Continue to elevate leg when sitting or lying down. Will provide oral pain medication. What physical therapy ambulate with crutches. Will monitor for compartment syndrome. Will recheck venous Doppler today due to swelling. Anticipate discharge once pain under control, improved swelling to the calf region, and able to ambulate appropriately or crutches. Time Spent Managing Pts Care (In Minutes): 55
--- NOTE | 2019-05-10 11:22 | RAD REPORT ---
EXAM DESCRIPTION: US - Extremity Venous Uni Ltd - 05/10/2019 11:07 am CLINICAL HISTORY: Right leg pain, right calf swelling COMPARISON: DVT study May 08, MR knee May 08 TECHNIQUE: Real-time sonographic evaluation of the right lower extremity deep venous systems was per formed. FINDINGS: Normal compressibility, flow augmentation, phasic flow and spontaneous flow are identified in the right lower extremity common femoral, superficial femoral, popliteal and posterior tibial vei ns. No intraluminal filling defects seen. The current and the prior ultrasound studies demonstrated a 3.5 centimeter heterogeneous avascular ma ss in the popliteal fossa. This is shown on the MRI to be superficial the gastrocnemius muscle. This is most likely soft tissue hematoma. No interval twisting frame changer the short time interval since May 08 . MRI imaging showed a larger popliteal fossa cyst along the posterior margin of the tibia. This is n ot clearly seen at sonography. IMPRESSION: No DVT in the right lower extremity. Approximately 3.5 centimeter oval mass in the superficial right popliteal fossa has not change from J anuary 17 ultrasound and MRI studies. This is most likely a hematoma. This can be monitored for resol ution on subsequent imaging.
--- NOTE | 2019-05-10 11:31 | RAD REPORT ---
EXAM DESCRIPTION: US - Lower Extremity Artery Uni Ltd - 05/10/2019 11:07 am CLINICAL HISTORY: right leg swelling , right leg pain, popliteal fossa mass on prior imaging COMPARISON: No comparisons, MRI and DVT study May 08 TECHNIQUE: Doppler evaluation of the arterial tree performed. Waveforms and velocity values were ob tained along with visual inspection. FINDINGS: Triphasic waveform pattern was seen along the length of the right lower extremity. No occl usion or focal flow restricting lesion. No suspicious velocity value or waveform. IMPRESSION: Right lower extremity arterial tree shows no significant or suspicious finding.
[2019-05-10 12:02] VITALS: BP 131/69; TEMP 97.5
--- NOTE | 2019-05-10 12:24 | P.PN ---
Subjective Date of Service: 05/10/19 Primary Care Provider: Dr. Reid([place]) Chief Complaint: RLE pain and swelling Subjective: Improving keeping right leg elevated; symptoms improving Physical Examination - Vital Signs Temperature: 97.5 F Blood Pressure: 131/69 Pulse: 71 Respirations: 16 Pulse Ox (%): 93 - Physical Exam General: Alert, In no apparent distress Musculoskeletal: Other (RLE: + swelling and ecchymoses to right calf; compartments swollen yet soft; +EHL/FHL without pain; sensation grossly intact over the dorsal and plantar foot; + DP pulses) - Studies Medications List Reviewed: Yes Assessment And Plan - Plan Jean Marie is a 63 yo male with right knee OA with effusion/hemarthrosis w/ ruptures Ervin's cyst with hematoma -keep RLE elevated and minimize ambulation to aid with resolution of swelling -INR normalizing -august f/u in my clinic for reevaluation after discharge Physician Review Additional Text: .
--- NOTE | 2019-05-10 13:14 | P.DS ---
Admission Date: 05/08/19 Discharge Date: 05/10/19 Primary Care Provider: Dr. Reid([place]) Disposition: ROUTINE DISCHARGE Discharge Condition: GOOD Reason for Admission: RLE pain and swelling Consultations: Orthopedics-Dr. Johnson Procedures: Venous doppler: COMPARISON: None. TECHNIQUE: Real-time sonographic evaluation of the bilateral lower extremity common femoral, superficial femoral, popliteal and posterior tibial veins was performed. FINDINGS: Normal compressibility, flow augmentation, phasic flow and spontaneous flow are identified in the left and right lower extremity common femoral, superficial femoral, popliteal and posterior tibial veins. No intraluminal filling defects seen. No sonographic correlate for the possible DVT on outside study. In the right popliteal fossa there is a 3.3 centimeter oval heterogeneous hypoechoic mass. This is most typically a hemorrhagic or complex popliteal fossa cyst. Soft tissue hematoma from trauma would be possible as well. IMPRESSION: No DVT in either lower extremity. Right popliteal fossa 3.3 centimeter masses most likely hemorrhagic or complex popliteal fossa cyst. CT scan: COMPARISON: Chest Single View dated 05/08/2019 TECHNIQUE: Dynamically enhanced 3 mm thick images of the chest were obtained during administration of approximately 150mL Isovue 370 IV contrast. Coronal and oblique MIP reconstruction images were generated and reviewed. Exam utilizes a protocol to evaluate the pulmonary arterial tree. All CT scans are performed using dose optimization technique as appropriate and may include automated exposure control or mA/KV adjustment according to patient size. FINDINGS: No pulmonary emboli are identified. The aorta as imaged shows no acute or suspicious finding. No pericardial thickening or effusion. Atelectasis changes are present with no mass or infiltrate. Calcified granuloma seen posterior gutter on the right. No pleural effusion or pleural thickening. No mediastinal or hilar suspicious masses. No chest wall masses or abnormal axillary lymphadenopathy. No acute bone findings seen. Old left clavicle fracture is seen. IMPRESSION: No pulmonary emboli identified. No other significant or suspicious findings. Repeat doppler: COMPARISON: DVT study May 08, MR knee May 08 TECHNIQUE: Real-time sonographic evaluation of the right lower extremity deep venous systems was performed. FINDINGS: Normal compressibility, flow augmentation, phasic flow and spontaneous flow are identified in the right lower extremity common femoral, superficial femoral, popliteal and posterior tibial veins. No intraluminal filling defects seen. The current and the prior ultrasound studies demonstrated a 3.5 centimeter heterogeneous avascular mass in the popliteal fossa. This is shown on the MRI to be superficial the gastrocnemius muscle. This is most likely soft tissue hematoma. 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 MRI imaging showed a larger popliteal fossa cyst along the posterior margin of the tibia. This is not clearly seen at sonography. IMPRESSION: No DVT in the right lower extremity. Approximately 3.5 centimeter oval mass in the superficial right popliteal fossa has not change from May 08 ultrasound and MRI studies. This is most likely a hematoma. This can be monitored for resolution on subsequent imaging. Arterial doppler: COMPARISON: No comparisons, MRI and DVT study May 08 TECHNIQUE: Doppler evaluation of the arterial tree performed. Waveforms and velocity values were obtained along with visual inspection. FINDINGS: Triphasic waveform pattern was seen along the length of the right lower extremity. No occlusion or focal flow restricting lesion. No suspicious velocity value or waveform. IMPRESSION: Right lower extremity arterial tree shows no significant or suspicious finding. MRI Scan: COMPARISON: None. TECHNIQUE: Sagittal and axial PD and T2 fat sat sequences obtained. Coronal T2 fat sat and T1 sequences also obtained. FINDINGS: No occult fracture or bone bruise of the distal femur. Small subcortical degenerative cystic changes are present medially. Femoral chondromalacia changes are present. A full-thickness osteochondral defect is not identified. Chondromalacia is significant. Patella chondromalacia changes are also present. No full thickness osteochondral defects of the femur or patella. A 10 mm subcortical degenerative cyst is present along the posterior tibial spine near the PCL insertion. Trabecular edema seen surrounding this subcortical degenerative cyst. A fracture is not identified. There degenerative cystic changes seen in the anterior aspect of the medial tibial plateau. No full thickness osteochondral fragment seen. No proximal fibula abnormality. The anterior cruciate, posterior cruciate, medial collateral and lateral collateral ligaments are intact. Lateral meniscus degenerative signal is present without tear. There is degenerative signal in the posterior horn of the medial meniscus. Meniscal tear is suspected but not confirmed. Large joint effusion is present. There is a 6 x 6 x 3 centimeter fluid collection between the proximal tibia and the gastrocnemius musculature. This is believed to be a Ervin cyst that has been extended or directed inferiorly. Small amount of edema surrounds this cyst. There may be some leakage from the cyst. Additionally, there is a 3.5 centimeter heterogeneous mixed signal intensity mass along the superficial margin of the medial head gastrocnemius muscle. This is the finding seen on sonography. In this location this is most likely a hematoma. The medial head tendon origins show slight thickening and signal increase relative to the lateral tendon origin. IMPRESSION: Approximately 3 centimeter heterogeneous mass superficial to the left gastrocs anemia he was tendon and muscle fibers. This is believed to be a hematoma. There is a small amount of fluid or edema in the surrounding fatty tissues. There is minimal tendinitis or degenerative signal within the medial head gastrocnemius tendon origin. Patient has a 6 centimeter sized popliteal fossa cyst extending inferiorly along the posterior margin of the tibia. Surrounding fluid may indicate some leakage from the cyst. Patient has moderately prominent degenerative changes as detailed. An acute bone process is not suspected. No full thickness osteochondral defect. Large joint effusion. Abnormal signal in the posterior horn medial meniscus without definitive meniscal tear. Exam has limitation due to motion. Medical problem list: Right lower extremity swelling below the knee likely related to ruptured/ leaking Ervin's cyst now with hematoma measuring 6 x 6 x 3 cm between proximal tibia and gastrocnemius musculature and large joint effusion without DVT Brief History of Present Illness: 63-year-old male presented to the emergency room with right lower extremity swelling. Patient had been seen 5 days prior by his PCP. At that time there was some indication of an acute DVT. He was sent home with Coumadin. After starting medication he started to notice increased swelling. In the ER he was evaluated. He was admitted for further evaluation. Hospital Course: Patient presented with right lower extremity swelling below the knee. Prior to admission there was some concern of a DVT by his PCP. He was placed on Coumadin. He apparently had a study done prior to admission. Upon further evaluation the emergency room. CT scan of the chest showed no pulmonary embolism. Venous Doppler showed no DVT. Patient had 3 cm popliteal structure likely Ervin cyst. This appeared ruptured or leaking as there is a hematoma measuring 6 x 6 x 3 cm between the proximal tibia and gastrocnemiusic musculature. This was likely exacerbated by recent Coumadin use. Patient was seen and evaluated by orthopedics. Orthopedics recommended elevation with the use of crutches. No intervention required at this time. Pain has been well managed. Repeat venous Doppler shows no acute DVT. Arterial Doppler shows no acute clot. Records from PCP will be obtained to further evaluate on why patient was given Coumadin. Coumadin has been discontinued. Recommend follow up with his PCP in 1-2 weeks to follow up this hospitalization. Recommend follow up with orthopedics in 1-2 weeks as well. Patient will be provided tramadol 50 mg 3 times a day as needed for pain along with gabapentin 100 mg 3 times a day as needed for pain. As recommended above patient will need to elevate his leg when sitting, lying. No excess exertion, exercise or work. Recommend to use crutches. Fall precautions in place. Vital Signs/Physical Exam: Temp Pulse Resp BP Pulse Ox 97.5 F 71 16 131/69 93 05/10/19 12:24 05/10/19 12:24 05/10/19 12:24 05/10/19 12:24 05/10/19 12:24 General: Alert, In no apparent distress, Oriented x3, Cooperative HEENT: Atraumatic, Normocephalic Neck: Supple Respiratory: Clear to auscultation bilaterally Cardiovascular: Normal pulses, Regular rate/rhythm Gastrointestinal: Normal bowel sounds Musculoskeletal: No tenderness, No warmth Integumentary: Tenderness/swelling (Swelling improved with elevation of the leg) Neurological: Normal speech, Normal strength at 5/5 x4 extr, Normal tone Laboratory Data at Discharge: WBC 6.9 K/uL (4.3-10.9) 05/10/19 06:08 Hgb 14.5 g/dL (13.6-17.9) 05/10/19 06:08 Hct 41.9 % (39.6-49.0) 05/10/19 06:08 Plt Count 220 K/uL (152-406) 05/10/19 06:08 PT 16.0 SECONDS (9.5-12.5) H 05/10/19 06:08 INR 1.37 05/10/19 06:08 Sodium 141 mmol/L (136-145) 05/09/19 11:16 Potassium 4.0 mmol/L (3.5-5.1) 05/09/19 11:16 BUN 11 mg/dL (7-18) 05/09/19 11:16 Creatinine 0.89 mg/dL (0.55-1.3) 05/09/19 11:16 Glucose 90 mg/dL (74-106) 05/09/19 11:16 Magnesium 2.0 mg/dL (1.8-2.4) 05/08/19 14:05 Total Bilirubin 0.6 mg/dL (0.2-1.0) 05/09/19 11:16 AST 16 U/L (15-37) 05/09/19 11:16 ALT 27 U/L (12-78) 05/09/19 11:16 Alkaline Phosphatase 78 U/L (45-117) 05/09/19 11:16 Home Medications: Gabapentin [Neurontin*] 100 mg PO TID PRN #30 cap 05/10/19 traMADol HCL [Ultram*] 50 mg PO TID PRN #30 tab 05/10/19 New Medications: Gabapentin [Neurontin*] 100 mg PO TID PRN #30 cap PRN Reason: Pain Scale 2-4 (Mild) traMADol HCL [Ultram*] 50 mg PO TID PRN #30 tab PRN Reason: Pain Patient Discharge Instructions: 1. Recommend follow up with PCP in 1 week. 2. Patient presented with right lower extremity swelling below the knee. Prior to admission there was some concern of a DVT by his PCP. He was placed on Coumadin. He apparently had a study done prior to admission. Upon further evaluation the emergency room. CT scan of the chest showed no pulmonary embolism. Venous Doppler showed no DVT. Patient had 3 cm popliteal structure likely Ervin cyst. This appeared ruptured or leaking as there is a hematoma measuring 6 x 6 x 3 cm between the proximal tibia and gastrocnemiusic musculature. This was likely exacerbated by recent Coumadin use. Patient was seen and evaluated by orthopedics. Orthopedics recommended elevation with the use of crutches. No intervention required at this time. Pain has been well managed. Repeat venous Doppler shows no acute DVT. Arterial Doppler shows no acute clot. Records from PCP will be obtained to further evaluate on why patient was given Coumadin. Coumadin has been discontinued. Recommend follow up with his PCP in 1-2 weeks to follow up this hospitalization. Recommend follow up with orthopedics in 1-2 weeks as well. Patient will be provided tramadol 50 mg 3 times a day as needed for pain along with gabapentin 100 mg 3 times a day as needed for pain. As recommended above patient will need to elevate his leg when sitting, lying. No excess exertion, exercise or work. Recommend to use crutches. Fall precautions in place. Diet: AHA Activity: Ad josue Time spent managing pt's care (in minutes): 55
[2019-05-10] MEDS ORDERED: ENOXAPARIN 30 MG/0.3 ML SQ SCH (17:00)
== END 2019-05-10 16:05 | disposition home or self-care (01) ==
LOC: ER 12:48 → ERHOLD 15:29 → UNDOADMOB 15:29 → 4TH 20:04 → OBSVTOIN 05-09 20:08 → INTOOBSV 05-09 20:08
PROVIDERS: ADMIT Hospitalist; ATTEND Hospitalist
DX: M25.461 Effusion, right knee (principal); S80.01XA Contusion of right knee, initial encounter; M25.861 Other specified joint disorders, right knee; M17.11 Unilateral primary osteoarthritis, right knee; Z87.891 Personal history of nicotine dependence
CPT/HCPCS: 36415; 71045; 71275; 80048; 80053; 80076; 81003; 81015; 83735; 83880; 84484; 85025; 85610; 87086; 87088; 93005; 93926; 93970; 93971; 96361; 96374; 96375; 97161; 99285; G0378; J1170; J1644; J2405; J3010; J3430; J7030; Q9967